=== PATIENT | female | born 1990 | race Caucasian/White ===

== ENCOUNTER 2023-02-05 18:01 | Inpatient (IN) ==
[2023-02-05] MEDS ORDERED: Lactated Ringers 1000 ml BAG 1,000 ML IV ONE (18:46)
[2023-02-05] MEDS ORDERED: Promethazine INJ(RESTRICTED) 25 MG/ML 1 ml VIAL IV PRN (18:46)
[2023-02-05] MEDS ORDERED: Buffered Lidocaine 1% SYRIN 1 ml INTRADERM ONE (18:46)
[2023-02-05] MEDS ORDERED: Dinoprostone 10 MG VAG.SUPP VAGINAL ONE (18:46)
[2023-02-06 04:27] LABS: Urine Benzodiazepine Screen None Detected (None Detect); Urine Cannabinoids Screen None Detected (None Detect); Urine Opiates Screen None Detected (None Detect)
[2023-02-06 08:43] LABS: ABS Basophils 0.1 10^3/uL (0.0-0.1); ABS Eosinophils 0.1 10^3/uL (0.0-0.5); ABS Lymphocytes 1.9 10^3/uL (1.0-4.8); ABS Monocytes 0.9 10^3/uL (0.0-0.9); Eosinophil % 0.6 %; Hematocrit 34.9 % (35-45); Hemoglobin 11.6 g/dL (11.5-14.3); Lymphocyte % 14.8 %; Mean Corpuscular Hemoglobin 28.6 pg (27-33); Mean Corpuscular Hgb Conc 33.4 g/dL (31-36); Mean Corpuscular Volume 85.6 fL (80-97); Mean Platelet Volume 8.6 fL (7.5-11.2); Platelet Count 264 10^3/uL (150-450); Red Blood Count 4.08 10^6/uL (3.63-4.92); Red Cell Distribution Width 14.6 % (12-17); White Blood Count 12.9 10^3/uL (3.8-11.8)
[2023-02-06] MEDS ORDERED: Oxytocin in LR 20,000 MILLI.UNIT/1,000 ML BAG IV SCH (09:35)
[2023-02-06] MEDS: Lactated Ringers 1000 ml BAG 1,000 ML IV SCH (13:32)
[2023-02-06] MEDS ORDERED: Morphine 10 MG/ML VIAL (1 ml) IV ONE (23:37)
[2023-02-07] MEDS: Lactated Ringers 1000 ml BAG 1,000 ML IV ONE ×2 (00:46→16:51)
[2023-02-07] MEDS ORDERED: Calcium Carb (TUMS) 500 mg CHEW TAB PO ONE (08:15)
[2023-02-07] MEDS ORDERED: Oxytocin in LR 20,000 MILLI.UNIT/1,000 ML BAG IV SCH ×2 (08:30→23:00)
[2023-02-07] MEDS ORDERED: Oxytocin in LR 20,000 MILLI.UNIT/1,000 ML BAG IV ONE (08:37)
[2023-02-07] MEDS: Lactated Ringers 1000 ml BAG 1,000 ML IV SCH (09:29)
[2023-02-07] MEDS ORDERED: Promethazine INJ(RESTRICTED) 25 MG/ML 1 ml VIAL IV ONE (11:35)
[2023-02-07] MEDS ORDERED: Lidocaine 1% w EPI 1:200,000 SDV 30 ML VIAL ONE (16:40)
[2023-02-07] MEDS ORDERED: OBEPIDURAL (200 ML) 200 ML EPIDURAL ONE (16:40)
[2023-02-07] MEDS ORDERED: Bupivacaine 0.25% SDV PF 10 ML VIAL INJ ONE (17:14)
[2023-02-07] MEDS ORDERED: Lactated Ringers 1000 ml BAG 1,000 ML IV ONE (17:42)
[2023-02-07] MEDS ORDERED: Phenylephrine 40 mcg/mL 10mL (400mcg) SYRINGE IV PUSH PRN ×2 (17:42)
[2023-02-07] MEDS ORDERED: OBEPIDURAL (200 ML) 200 ML EPIDURAL SCH (18:00)
[2023-02-07] MEDS ORDERED: Lactated Ringers 1000 ml BAG 1,000 ML IV SCH ×2 (18:00→23:00)
[2023-02-07 19:19] LABS: Urine Appearance Clear; Urine Bilirubin Negative (Negative); Urine Blood Negative (Negative); Urine Color Straw; Urine Glucose Negative (Negative); Urine Ketones Negative (Negative); Urine Nitrite Negative (Negative); Urine Protein Negative (Negative); Urine Specific Gravity 1.004 (1.002-1.030); Urine Urobilinogen Negative (Negative)
[2023-02-08] MEDS: Witch Hazel PAD JAR TOPICAL PRN ×2 (00:47→08:56)
[2023-02-08] MEDS: Dibucaine 1% OINT 28.35 GM TUBE PR PRN ×2 (00:47→08:56)
[2023-02-08] MEDS ORDERED: Phenylephrine 40 mcg/mL 10mL (400mcg) SYRINGE ONE (05:11)
[2023-02-08] MEDS ORDERED: Lidocaine 1% VIAL 10 MG/ML VIAL 30 ML ONE (05:11)
[2023-02-08 06:23] LABS: ABS Lymphocytes 1.8 10^3/uL (1.0-4.8); ABS Monocytes 1.4 10^3/uL (0.0-0.9); ABS Neutrophils 14.6 10^3/uL (1.5-7.6); Eosinophil % 0.2 %; Hematocrit 28.8 % (35-45); Hemoglobin 9.7 g/dL (11.5-14.3); Lymphocyte % 10.3 %; Mean Corpuscular Hemoglobin 28.9 pg (27-33); Mean Corpuscular Hgb Conc 33.7 g/dL (31-36); Mean Corpuscular Volume 85.6 fL (80-97); Mean Platelet Volume 8.6 fL (7.5-11.2); Platelet Count 200 10^3/uL (150-450); Red Blood Count 3.36 10^6/uL (3.63-4.92); Red Cell Distribution Width 14.5 % (12-17); White Blood Count 17.8 10^3/uL (3.8-11.8)
[2023-02-09 08:10] VITALS: BP 124/76
== END 2023-02-09 16:02 | disposition home or self-care (01) | DRG 560 ==
LOC: MCHOBOUT 18:01 → MCHOB 18:20
PROVIDERS: ADMIT Advanced Practice Midwife; ATTEND Midwife